=== PATIENT | female | born 2000 | race Caucasian/White ===

== ENCOUNTER 2021-01-23 11:20 | Emergency (ER) | payer OTHER ==
[2021-01-23] MEDS ORDERED: LEXAPRO5 MG (11:32)
[2021-01-23 12:06] LABS: BASO # 0.04 (0.02-0.10); EOS # 0.03 (0.04-0.40); EOS % 0.2 % (0.1-4.0); HEMATOCRIT 40.9 % (35.0-45.0); HEMOGLOBIN 13.6 g/dL (12.0-15.0); LYMPH# 1.63 (1.20-3.40); MEAN CELL VOLUME 86 fl (78-95); MEAN CORPUSCULAR HEMOGLOBIN 29 pg (26-32); MEAN CORPUSCULAR HGB CONC 33 g/dL (33-37); MEAN PLATELET VOLUME 8.9 fl (7.4-10.4); MONO # 1.08 (0.10-0.60); NEU # 11.83 (1.40-6.50); PLATELET COUNT 359 K/mm3 (130-400); RED BLOOD COUNT 4.74 M/mm3 (4.10-5.30); RED CELL DISTRIBUTION WIDTH 12.3 % (11.5-14.5); WHITE BLOOD COUNT 14.6 K/mm3 (4.8-10.8)
[2021-01-23 12:20] LABS: ALBUMIN 4.1 g/dL (3.5-5.0); POTASSIUM 3.6 mmol/L (3.5-5.1)
[2021-01-23 12:21] LABS: CALCIUM 9.3 mg/dL (8.3-10.5)
[2021-01-23 12:22] LABS: TOTAL PROTEIN 7.2 g/dL (6.4-8.3)
[2021-01-23 12:24] LABS: TOTAL BILIRUBIN 0.3 mg/dL (0.2-1.2)
[2021-01-23 13:02] LABS: URINE APPEARANCE CLEAR; URINE BILIRUBIN 1+ (NEGATIVE); URINE COLOR YELLOW; URINE KETONE NEGATIVE (NEGATIVE); URINE PROTEIN(semi-quant) NEGATIVE (NEGATIVE); URINE UROBILINOGEN NORMAL (NORMAL)
[2021-01-23 13:03] LABS: URINE BLOOD 50 ery/uL (NEGATIVE); URINE LEUKOCYTE ESTERASE TRACE (NEGATIVE); URINE MUCUS PRESENT (NOT PRESENT); URINE NITRATE NEGATIVE (NEGATIVE)
[2021-01-23 16:23] VITALS: BP 103/68
== END 2021-01-23 15:50 | disposition short-term general hospital (02) ==
LOC: ED 11:20
PROVIDERS: Nurse Practitioner Family
DX: K35.80 Unspecified acute appendicitis (principal); F32.9 Major depressive disorder, single episode, unspecified; Z32.02 Encounter for pregnancy test, result negative; Z79.899 Other long term (current) drug therapy; Z79.1 Long term (current) use of non-steroidal anti-inflammatories (NSAID)
CPT/HCPCS: J0696; J1885; J3490; J7030; Q9967